=== PATIENT | male | born 1965 ===

== ENCOUNTER 2019-05-14 05:14 | Inpatient (IN) | payer OTHER ==
[2019-05-14] VITALS (16 sets, daily range): BP systolic 99–167; BP diastolic 52–108
[~2019-05-14] VITALS: Ht 165.1 cm; Wt 86.2 kg
[2019-05-14] MEDS ORDERED: Pantoprazole Inj IVP ONE (06:00)
[2019-05-14] MEDS ORDERED: Vancomycin 1gm/D5W 275ml IVPB ONE ×2 (06:00)
[2019-05-14] MEDS ORDERED: IBUPROFEN600 MG ORAL (06:14)
[2019-05-14] MEDS ORDERED: VICKS SINEX15 M1 NS (06:14)
[2019-05-14] MEDS ORDERED: COLON HERBAL C1 EACH PO (06:14)
[2019-05-14] MEDS ORDERED: LISINOPRIL10 MG ORAL (06:14)
[2019-05-14] MEDS ORDERED: Pantoprazole Inj ONE (06:34)
[2019-05-14] MEDS ORDERED: Rocuronium Bromide 50mg/5ml Inj IV ONE (06:34)
[2019-05-14] MEDS ORDERED: Sodium Chloride 10ml vial INJ ONE (06:37)
[2019-05-14] MEDS ORDERED: Lidocaine 1% MPF 10mg/ml 5ml ONE (06:52)
[2019-05-14] MEDS ORDERED: Dexamethasone 4mg/ml vial ONE (06:52)
[2019-05-14] MEDS ORDERED: Lidocaine 1% Plain 30 ml INJ ONE ×3 (06:54→11:31)
[2019-05-14] MEDS ORDERED: fentaNYL 100 mcg/2 mL IV ONE ×2 (06:54→12:08)
[2019-05-14] MEDS ORDERED: LR 1000ml 1,000 ML IVLG SCH (06:56)
[2019-05-14] MEDS ORDERED: fentaNYL 100 mcg/2 mL IV PRN (07:00)
[2019-05-14] MEDS ORDERED: Atropine Sulfate 0.4mg/ml inj IVP PRN (07:00)
[2019-05-14] MEDS ORDERED: Ketorolac 30mg Inj IV PRN ×2 (07:00)
[2019-05-14] MEDS ORDERED: Meperidine 50mg/ml Inj(FOR RIGORS ONLY) IVP PRN (07:00)
[2019-05-14] MEDS ORDERED: LORazepam Inj 2mg/ml 1ml IV PRN (07:00)
[2019-05-14] MEDS ORDERED: Midazolam 2mg/2ml Inj IVP PRN (07:00)
[2019-05-14] MEDS ORDERED: Acetaminophen (Non formulary) 100 ML IV ONE ×2 (07:00→08:00)
[2019-05-14] MEDS ORDERED: Labetalol 5mg/ml 20ml vial IV PRN (07:00)
[2019-05-14] MEDS ORDERED: HYDROcodone/Acetamin 7.5/325 tab ORAL PRN ×2 (07:00→15:00)
[2019-05-14] MEDS ORDERED: HYDROcodone/Acetamin 5/325 tab ORAL PRN (07:00)
[2019-05-14] MEDS ORDERED: oxyCODONE HCL/Acetaminophen 5/325mg ORAL PRN (07:00)
[2019-05-14] MEDS ORDERED: Hydromorphone 0.5mg/0.5ml inj IVP PRN (07:00)
[2019-05-14] MEDS ORDERED: DiphenhydrAMINE 50mg/ml Inj IVP PRN (07:00)
[2019-05-14] MEDS ORDERED: Metoclopramide 10mg/2ml Inj IVP PRN (07:00)
--- NOTE | 2019-05-14 07:02 | Anethesia Preoperative Eval ---
Anesthesia Pre-op PMH/ROS General Date of Evaluation: May 14, 2019 Time of Evaluation: 07:24 Anesthesiologist: Kandice ASA Score: ASA 3 Mallampati Score Class I : Soft palate, uvula, fauces, pillars visible Class II: Soft palate, uvula, fauces visible Class III: Soft palate, base of uvula visible Class IV: Only hard plate visible Mallampati Classification: Class II Surgeon: Valerie Diagnosis: Back Pain Surgical Procedure: TLIF L4-5, 5-S1 Anesthesia History: none Family History: no anesthesia problems Allergies: Coded Allergies: No Known Allergies (Unverified , 05/13/19) Medications: see eMAR Patient NPO?: Yes NPO Date: May 13, 2019 NPO Time: 2100 Past Medical History Cardiovascular: Reports: HTN, other - HL Gastrointestinal/Genitourinary: Reports: other - Colitis PSxH Narrative: ACDF January 13 Anesthesia Pre-op Phys. Exam Physician Exam Last Vital Signs Date Time Temp Pulse Resp B/P (MAP) Pulse Ox O2 Delivery O2 Flow Rate FiO2 05/14/19 06:27 167/108 (127) 05/14/19 06:22 Room Air 05/14/19 05:46 97.3 54 18 99 Constitutional: NAD Neurologic: CN 2-12 intact Cardiovascular: RRR Respiratory: CTA Gastrointestinal: S/NT/ND Airway Exam Mallampati Score: Class II MO: full ROM: limited Teeth: missing, intact Anesthesia Pre-op A/P Risk Assessment & Plan Assessment: ASA 3 Plan: GA, SED, GlideScope Go Status Change Before Surgery: No Pre-Antibiotics Dru Gram Vancomycin IV Given Within 1 Hr of Incision: Yes Time Given: 07:48 Jordin Woodson MD May 14, 2019 07:02
--- NOTE | 2019-05-14 07:11 | Immediate Post-Op Evaluation ---
Immediate Post-Op Evalulation Immediate Post-Op Evalulation Procedure: TLIF L4-5, L5-S1 Date of Evaluation: May 14, 2019 Time of Evaluation: 13:05 IV Fluids: 600 LR Blood Products: 0 Estimated Blood Loss: 100 Urinary Output: 300 Blood Pressure Systolic: 127 Blood Pressure Diastolic: 86 Pulse Rate: 78 Respiratory Rate: 16 O2 Sat by Pulse Oximetry: 100 Temperature (Fahrenheit): 97.9 Pain Score (1-10): 2 Nausea: No Vomiting: No Complications 0 Patient Status: awake, reacts, patent, extubated, none Hydration Status: adequate Dru Gram Vancomycin IV Given Within 1 Hr of Incision: Yes Time Given: 07:48 Jordin Woodson MD May 14, 2019 07:11
[2019-05-14] MEDS ORDERED: Bacitracin Oint 15gm Tube TOPIC ONE (07:19)
[2019-05-14] MEDS ORDERED: Heparin 5000 units/ml inj ONE (07:19)
[2019-05-14] MEDS ORDERED: Heparin 1000 units/ml 1ml Vial ONE ×2 (07:19→08:22)
[2019-05-14] MEDS ORDERED: Bacitracin 50000 Units Vial ONE (07:20)
[2019-05-14] MEDS ORDERED: Gelfoam Size TOPIC ONE (07:20)
[2019-05-14] MEDS ORDERED: Thrombin 5000 units TOPIC ONE ×3 (07:20→11:01)
[2019-05-14] MEDS ORDERED: Bupivacaine w/Epi 0.5% 30ml Vial INJ ONE (07:20)
[2019-05-14] MEDS ORDERED: Propofol 1,000mg/ 100ml btl IV ONE (07:30)
[2019-05-14] MEDS ORDERED: Sterile Water Irrig 1000ml IRRIG ONE (07:30)
[2019-05-14] MEDS ORDERED: NS Irrig 1000ml ONE (07:30)
[2019-05-14] MEDS ORDERED: LR 1000ml ONE (07:30)
--- NOTE | 2019-05-14 07:49 | Pre-Procedure Note/Attestation ---
Pre-Procedure Note/Attestation Complete Prior to Procedure Planned Procedure: bilateral Procedure Narrative: posterior lumbar decompressive surgery interbody fusion pedicle screw fixation and posterolateral arthrodesis at the L5-S1 level with use of allograft, autograft and iliac crest bone marrow aspirate and left L4-L5 lumbar decompressive surgery Attestation I attest that I discussed the nature of the procedure; its benefits; risks and complications; and alternatives (and the risks and benefits of such alternatives ), prior to the procedure, with the patient (or the patient's legal tour sales representative). I attest that, if there was a reasonable possibility of needing a blood transfusion, the patient (or the patient's legal tour sales representative) was given the [place] Department of Health Services standardized written summary, pursuant to the Rikki [place] Blood Safety Act ([place] Health and Safety Code # 1645, as amended). I attest that I re-evaluated the patient just prior to the surgery and that there has been no change in the patient's H&P, except as documented below: Cali Padilla MD May 14, 2019 07:49
[2019-05-14] MEDS ORDERED: NS Irrig 1000ml IRRIG ONE ×2 (08:00→08:02)
[2019-05-14] MEDS ORDERED: ePHEDrine 50mg/ml Inj ONE (08:07)
--- NOTE | 2019-05-14 09:03 | NUR ---
CASE MANAGEMENT:REVIEW 53 YR OLD MALE HERE FOR ELECTIVE SURGERY SI: LUMBAR RADICULOPATHY 97.3 54 18 146/102 99% ON RA IS: TO SURGERY: LUMBAR DECOMPRESSION. INTERBODY FUSION IV VANCOMYCIN Q12 IVF+KCL@100/HR NORCO PO Q3HRS PRN : CURRENTLY IN SURGERY INTERQUAL CRITERIA MET
--- NOTE | 2019-05-14 12:54 | 48 Hour Post Anesthesia Eval ---
Post Anesthesia Evaluation Procedure: TLIF L4-5, L5-S1 Date of Evaluation: May 14, 2019 Time of Evaluation: 15:34 Blood Pressure Systolic: 133 0: 78 Pulse Rate: 76 Respiratory Rate: 18 Temperature (Fahrenheit): 98.2 O2 Sat by Pulse Oximetry: 98 Airway: patent Nausea: No Vomiting: No Pain Intensity: 2 Hydration Status: adequate Cardiopulmonary Status: Stable Mental Status/LOC: patient returned to baseline Follow-up Care/Observations: 0 Post-Anesthesia Complications: 0 Jordin Woodson MD May 14, 2019 12:54
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
--- NOTE | 2019-05-14 13:30 | General Progress Note ---
Progress Note Progress Note NEUROSURGERY POSTOP S/ minimal incisional pain. No leg pain O/ vs Last 24 Hour Vital Signs Date Time Temp Pulse Resp B/P (MAP) Pulse Ox O2 Delivery O2 Flow Rate FiO2 05/14/19 13:15 77 13 99/85 100 Simple Mask 6 05/14/19 13:05 69 12 117/77 100 Simple Mask 6 05/14/19 13:00 72 14 140/80 100 Simple Mask 6 05/14/19 12:54 97.9 78 16 127/86 100 Simple Mask 6 05/14/19 12:54 76 18 98 05/14/19 12:53 78 16 100 05/14/19 06:27 167/108 (127) 05/14/19 06:22 Room Air 05/14/19 05:46 97.3 54 18 146/102 (117) 99 alert and oriented x 4 Moves all extremities well Sensation normal HV minimal output doing well Admit to the floor Lumbar brace Cali Padilla MD May 14, 2019 13:30
--- NOTE | 2019-05-14 14:15 | NUR ---
NURSE NOTES: Pt came up to unit via hospital bed w/ at bedside. Pt A&Ox4; VSS; on 3L NC; and in no apparent distress. IV site intact/asymptomatic; surgical dressing C/D/I; and hemovac compressed to suction. Pt has no complaints of pain at this time and would not like anything to eat; explained that he is to have a clear liquid diet for dinner and will advance to regular diet if he tolerates PO intake; pt verbalized understanding. Will continue to monitor.
--- NOTE | 2019-05-14 14:26 | Diagnostic Imaging Report ---
INDICATION: Pain, intraoperative TECHNIQUE: Intraoperative imaging Fluoroscopy time: 64.7 seconds Total dose: 0.3450 mGym2 Total number of images: 5 COMPARISON: None FINDINGS: Intraoperative images demonstrate markers posterior to what are presumably L4 and L5. Subsequent images demonstrate a disc spacer at L5-S1, subsequently placement of posterior fusion hardware bridging L5 and S1 IMPRESSION: Intraoperative imaging, as described
[2019-05-14] MEDS ORDERED: Cyclobenzaprine 10mg Tab ORAL PRN (15:00)
[2019-05-14] MEDS ORDERED: HYDROmorphone 1mg/ml Carpuject IVP PRN (15:00)
[2019-05-14] MEDS ORDERED: Milk of Magnesia 30ml Ud ORAL PRN (15:00)
[2019-05-14] MEDS ORDERED: traMADol 50mg tab ORAL PRN (15:30)
[2019-05-14] MEDS ORDERED: NS w/KCl 20mEq 1000ml 1,000 ML IV SCH (15:30)
[2019-05-14] MEDS: NS w/KCl 20mEq 1000ml 1,000 ML IV SCH (15:31)
--- NOTE | 2019-05-14 16:25 | NUR ---
P.T Note: P.T evaluation completed and tx initiated per spinal protocol. See P.T evaluation for current functional status. Skilled P.T service is warranted to ensure safety and compliance with spinal precautions/proper body mechanics when performing ADL/functional mobilities.
[2019-05-14] MEDS: Docusate Sod/Senna tab ORAL SCH (18:04)
[2019-05-14] MEDS: Vancomycin 1 GM in D5W 275 ML IVPB SCH (18:04)
[2019-05-14] MEDS: Docusate 100mg cap ORAL SCH (18:04)
[2019-05-14] MEDS: HYDROcodone/Acetamin 7.5/325 tab ORAL PRN (18:21)
--- NOTE | 2019-05-14 19:14 | NUR ---
HAND-OFF: Report given to USMAN Weiner.
--- NOTE | 2019-05-14 19:28 | NUR ---
NURSE NOTES: Received report & pt from USMAN Edouard. Pt in bed, a&ox4, [place]vian speaking with some [place] Islander, on O2 via NC @ 3LPM, family member at bedside. No s/s of acute distress & c/o 06/27 pain at this time. Escudero cath intact & draining to gravity. Hemovac intact. IV site intact with IVF running as ordered. Surgical dressing C/D/I. Bed in lowest position, call light within reach. Will continue to monitor.
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
[2019-05-15] VITALS: BP 115/71
[2019-05-15] MEDS: NS w/KCl 20mEq 1000ml 1,000 ML IV SCH (01:01)
[2019-05-15 04:00] VITALS: BP 108/70
[2019-05-15] MEDS: Vancomycin 1 GM in D5W 275 ML IVPB SCH (05:32)
[2019-05-15 06:53] LABS: BASOPHILS % (AUTO) 0.4 % (0.0-2.0); EOSINOPHILS % (AUTO) 0.5 % (0.0-3.0); HEMATOCRIT 38.8 % (42.0-52.0); HEMOGLOBIN 13.4 G/DL (14.2-18.0); LYMPHOCYTES % (AUTO) 17.1 % (20.0-45.0); MEAN CORPUSCULAR VOLUME 88 FL (80-99); MONOCYTES % (AUTO) 8.5 % (1.0-10.0); NEUTROPHILS % (AUTO) 73.5 % (45.0-75.0); PLATELET COUNT 222 K/UL (150-450); RED BLOOD COUNT 4.42 M/UL (4.70-6.10); RED CELL DISTRIBUTION WIDTH 11.5 % (11.6-14.8); WHITE BLOOD COUNT 10.8 K/UL (4.8-10.8)
[2019-05-15 07:01] LABS: ANION GAP 8 mmol/L (5-15); BLOOD UREA NITROGEN 15 mg/dL (7-18); CALCIUM 8.3 MG/DL (8.5-10.1); CARBON DIOXIDE 26 MMOL/L (21-32); CHLORIDE 107 MMOL/L (98-107); CREATININE 0.8 MG/DL (0.55-1.30); POTASSIUM 4.2 MMOL/L (3.5-5.1); SODIUM 141 MMOL/L (136-145)
--- NOTE | 2019-05-15 07:22 | NUR ---
HAND-OFF: Report given to USMAN Edouard. Pt in stable condition.
--- NOTE | 2019-05-15 07:30 | NUR ---
NURSE NOTES: Pt lying in bed w/ at bedside, bed in lowest position, and call light within reach. Pt A&Ox4, VSS, and in no apparent distress. IV site intact/asymptomatic w/IVF infusing; F/C patent/draining; hemovac compressed to suction; and surgical dressing C/D/I. Will continue to monitor.
[2019-05-15 08:00] VITALS: BP 111/69
[2019-05-15] MEDS: Lisinopril 10mg tab ORAL SCH (09:00)
[2019-05-15] MEDS: Docusate Sod/Senna tab ORAL SCH ×2 (09:16→17:00)
[2019-05-15] MEDS: HYDROcodone/Acetamin 7.5/325 tab ORAL PRN ×2 (09:16→15:31)
[2019-05-15] MEDS: Docusate 100mg cap ORAL SCH ×2 (09:16→17:00)
--- NOTE | 2019-05-15 10:30 | NUR ---
NURSE NOTES: Helped pt ambulate w/[facility] down the hallway and back to bed successfully; pt initially c/o nausea and dizziness but states resolved once we returned to bed; took a couple or breaks while walking d/t pain and fatigue. Also, removed F/C and reminded pt to let me know once he voids on his own; pt verbalized understanding. Pt states pain is 3/10 and is presently comfortable. Will continue to monitor.
--- NOTE | 2019-05-15 11:10 | General Progress Note ---
Progress Note Progress Note Neurosurgery S/ Ambulated, pt voided, No leg pain O/ VS: Last 24 Hour Vital Signs Date Time Temp Pulse Resp B/P (MAP) Pulse Ox O2 Delivery O2 Flow Rate FiO2 05/15/19 09:00 111/69 05/15/19 09:00 Room Air 05/15/19 08:00 97.4 70 18 111/69 (83) 96 05/15/19 04:00 97.5 71 18 108/70 (83) 97 05/15/19 00:00 97.7 75 16 115/71 (86) 96 05/14/19 21:00 Nasal Cannula 2.0 05/14/19 20:00 97.7 70 16 117/75 (89) 97 05/14/19 17:00 97.3 67 18 115/82 (93) 98 05/14/19 16:00 97.6 69 20 117/83 (94) 97 05/14/19 15:00 97.5 73 18 117/83 (94) 97 05/14/19 14:15 97.3 72 18 118/83 (95) 96 05/14/19 14:00 69 18 110/72 99 Nasal Cannula 3 05/14/19 14:00 97.6 05/14/19 13:56 97.6 71 16 105/67 98 Nasal Cannula 3 05/14/19 13:45 62 14 101/52 99 Nasal Cannula 3 05/14/19 13:35 84 16 115/89 98 Nasal Cannula 3 05/14/19 13:25 80 16 123/86 99 Simple Mask 6 05/14/19 13:15 77 13 99/85 100 Simple Mask 6 05/14/19 13:05 69 12 117/77 100 Simple Mask 6 05/14/19 13:00 72 14 140/80 100 Simple Mask 6 05/14/19 12:54 97.9 78 16 127/86 100 Simple Mask 6 05/14/19 12:54 76 18 98 05/14/19 12:53 78 16 100 On exam, Incision is C/D/I. HV removed less than 30 cc output LE 5/5 distal and proximal. Sensation normal in hte upper and lowers. labs: Laboratory Tests Test 05/15/19 05:20 White Blood Count 10.8 K/UL (4.8-10.8) Red Blood Count 4.42 M/UL (4.70-6.10) L Hemoglobin 13.4 G/DL (14.2-18.0) L Hematocrit 38.8 % (42.0-52.0) L Mean Corpuscular Volume 88 FL (80-99) Mean Corpuscular Hemoglobin 30.4 PG (27.0-31.0) Mean Corpuscular Hemoglobin Concent 34.6 G/DL (32.0-36.0) Red Cell Distribution Width 11.5 % (11.6-14.8) L Platelet Count 222 K/UL (150-450) Mean Platelet Volume 6.8 FL (6.5-10.1) Neutrophils (%) (Auto) 73.5 % (45.0-75.0) Lymphocytes (%) (Auto) 17.1 % (20.0-45.0) L Monocytes (%) (Auto) 8.5 % (1.0-10.0) Eosinophils (%) (Auto) 0.5 % (0.0-3.0) Basophils (%) (Auto) 0.4 % (0.0-2.0) Sodium Level 141 MMOL/L (136-145) Potassium Level 4.2 MMOL/L (3.5-5.1) Chloride Level 107 MMOL/L (98-107) Carbon Dioxide Level 26 MMOL/L (21-32) Anion Gap 8 mmol/L (5-15) Blood Urea Nitrogen 15 mg/dL (7-18) Creatinine 0.8 MG/DL (0.55-1.30) Estimat Glomerular Filtration Rate > 60 mL/min (>60) Glucose Level 102 MG/DL (74-106) Calcium Level 8.3 MG/DL (8.5-10.1) L doing well Encourage ambulation D/c planning Continue with lumbar brace. Cali Padilla MD May 15, 2019 11:10
[2019-05-15 12:00] VITALS: BP 110/74
--- NOTE | 2019-05-15 15:45 | NUR ---
NURSE NOTES: Pt successfully voided 245 ml of timbo urine into urinal. Pt also ambulated around nursing unit once. Will continue to monitor.
[2019-05-15 16:00] VITALS: BP 122/83
--- NOTE | 2019-05-15 19:03 | NUR ---
HAND-OFF: Report given to USMAN Shin.
[2019-05-15 20:00] VITALS: BP 136/83
--- NOTE | 2019-05-15 20:11 | NUR ---
NURSE NOTES: Pt is in bed, awake and alert. No acute distress noted. Pt reports no pain. Pt has family members by bedside. Pt was up with RN during last shift. Pt has a discharge order for tomorrow, pt informed. Bed locked low in position,side rails up and call light within reach. Pt instructed to call for assistance before getting out of bed. Pt will be monitored.
[2019-05-16] VITALS: BP 119/80
[2019-05-16] MEDS: HYDROcodone/Acetamin 7.5/325 tab ORAL PRN ×2 (01:42→08:16)
--- NOTE | 2019-05-16 03:52 | NUR ---
NURSE NOTES: Pt is in bed, asleep. No acute distress noted. Pt's by bedside.
[2019-05-16 04:00] VITALS: BP 109/73
--- NOTE | 2019-05-16 07:20 | NUR ---
HAND-OFF: Report given to USMAN Diaz.
--- NOTE | 2019-05-16 07:30 | NUR ---
NURSE NOTES: Patient sitting in bed eating breakfast. No complain of pain or distress at this time. Skin intact and dry. Surgical dressing intact and dry. No IV access. Bed lowest position. Call light within reach. Will continue to monitor.
[2019-05-16 08:00] VITALS: BP 115/78
[2019-05-16] MEDS: Docusate 100mg cap ORAL SCH (08:16)
[2019-05-16] MEDS: Docusate Sod/Senna tab ORAL SCH (08:16)
[2019-05-16] MEDS ORDERED: NORCO 10-325 T1 EACH ORAL (08:43)
--- NOTE | 2019-05-16 08:44 | NUR ---
NURSE NOTES: Spoke to regarding discharge medications and new order received. Order read back and carried out.
[2019-05-16] MEDS: Lisinopril 10mg tab ORAL SCH (09:32)
[2019-05-16 09:35] VITALS: BP 137/93
[2019-05-16] MEDS ORDERED: Tubing IV Secondary IV ONE (10:44)
--- NOTE | 2019-05-16 10:45 | NUR ---
NURSE NOTES: Patient discharged with family member in stable condition. Discharge instruction given to patient and verbalized understanding. Belonging and prescription for pain medication given to patient. Instructed to follow up with MD and verbalized understanding. ID removed. Brought down to private car by wheelchair.
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
== END 2019-05-16 10:45 | disposition home or self-care (01) | DRG 460 ==
LOC: SDSOVERFLO 05:14 → 3E 14:10
DX: M43.17 Spondylolisthesis, lumbosacral region (principal); S32.058 Other fracture of fifth lumbar vertebra; M54.17 Radiculopathy, lumbosacral region; I10 Essential (primary) hypertension; K21.9 Gastro-esophageal reflux disease without esophagitis; M54.12 Radiculopathy, cervical region; V89.2XXS Person injured in unspecified motor-vehicle accident, traffic, sequela
CPT/HCPCS: 36415; 72020; 76000; 80048; 85025; 86850; 86900; 86901; 87081; 94003; 94150; C9399; J2405; J7030